=== PATIENT | female | born 1995 | race Caucasian/White ===

== ENCOUNTER 2023-12-19 21:26 | Emergency (ER) | payer OTHER ==
[~2023-12-19] VITALS: Ht 167.6 cm; Wt 79.4 kg
[2023-12-19 21:32] VITALS: PULSE 84; RESP 18; TEMP 99.7
[2023-12-19] MEDS ORDERED: IBUPROFEN200 MG PO (22:31)
[2023-12-19] MEDS ORDERED: TYLENOL325 MG PO (22:31)
[2023-12-19 23:28] VITALS: BP 123/86; PULSE 80; RESP 18; TEMP 99; O2SAT 99
== END 2023-12-19 23:28 | disposition home or self-care (01) ==
LOC: FSED 21:47
DX: R59.9 Enlarged lymph nodes, unspecified (principal); R59.1 Generalized enlarged lymph nodes; R53.81 Other malaise
CPT/HCPCS: 71250; 80053; 81003; 81025; 85025; 99283